=== PATIENT | male | born 1955 | race Caucasian/White ===

== ENCOUNTER 2020-11-11 13:28 | Emergency (ER) | payer MEDICAID ==
[~2020-11-11] VITALS: Ht 172.7 cm; Wt 85.7 kg
[~2020-11-11 13:28] MED LIST: AMBIEN 10 MG TA10 MG PO; CATAPRES; CLONAZEPAM; CLONAZEPAM PO; HYDROXYZINE; INVEGA6 MG PO; SEROQUEL; TRAZODONE 150150 MG PO
[2020-11-11 13:56] LABS: ABSOLUTE EOSINOPHILS 0.1 thou/uL (0.0-0.7); ABSOLUTE LYMPHOCYTES 1.2 thou/uL (0.8-5.3); ABSOLUTE MONOCYTES 0.6 thou/uL (0.0-1.2); ABSOLUTE NEUTROPHILS 6.6 thou/uL (1.6-8.1); BASOPHILS 0.5 %; EOSINOPHILS 1.4 %; HEMATOCRIT 40.8 % (42.0-52.0); HEMOGLOBIN 13.5 gm/dL (14.0-18.0); LYMPHOCYTES 13.9 %; MCH 30.7 pg (26.0-34.0); MCHC 33.2 g/dL (28.0-37.0); MCV 92.7 fL (80.0-100.0); MONOCYTES 7.5 %; MPV 8.9 fl. (7.2-11.1); NUCLEATED RBCS 0 /100WBC; PLATELET COUNT* 164 thou/uL (150-400); POLYS 76.7 %; WBC 8.6 thou/uL (4.0-11.0)
[2020-11-11 14:08] LABS: CALCIUM 8.2 mg/dL (8.5-10.1); CREATININE 0.7 mg/dL (0.6-1.3); POTASSIUM 3.8 mmol/L (3.5-5.1)
[2020-11-11 14:10] LABS: APTT 28.5 Seconds (25.0-31.3); PROTIME 10.6 Seconds (9.20-11.50)
[2020-11-11 14:22] LABS: ALBUMIN 3.1 g/dL (3.4-5.0); CK-MB MASS 1.4 ng/mL (<0.5-3.6); MAGNESIUM 2.1 mg/dL (1.8-2.4); TOTAL BILIRUBIN 0.6 mg/dL (<0.1-1.0); TOTAL PROTEIN 6.1 g/dL (6.4-8.2)
[2020-11-11] MEDS ORDERED: VENTOLIN HFA 1818 GM INH (15:10)
[2020-11-11] MEDS ORDERED: PREDNISONE 20 M20 M1 PO (15:10)
[2020-11-11] MEDS ORDERED: ZPAK PO (15:10)
[2020-11-11] MEDS ORDERED: LASIX 40 MG TAB40 MG PO (15:10)
[2020-11-11 15:35] VITALS: BP 142/72
--- NOTE | 2020-11-12 10:07 | EKG ---
[place] [address] ELECTROCARDIOGRAM REPORT Name: ALICE ALEX Room: [facility]#: [id number] Admission: 11/11/20 Attend Phys: Discharge: 11/11/20 Date of : 59 Date of Service: 11/11/20 1331 Report #: [id number] THIS REPORT FOR: //name// [facility] ED Test Date: 2020-11-11 Test Time: 13:31:42 Pat Name: ALICE ALEX Department: Room: Gender: License Registration Examiner: KIMBERLY : 1955 Requested By: Ej Vizcarra Order Number: [id number] MD: Trevor Jackman Measurements Intervals [place] Rate: 91 P: 63 SC: 143 QRS: 44 QRSD: 97 T: 82 QT: 338 QTc: 416 Interpretive Statements Sinus rhythm Ventricular premature complex Left atrial enlargement LVH with secondary repolarization abnormality Anterior Q waves, possibly due to LVH Compared to ECG 11/29/2009 21:44:42 Ventricular premature complex(es) now present Atrial abnormality now present Left ventricular hypertrophy now present Early repolarization now present Q waves now present ST (T wave) deviation no longer present Electronically Signed On 11-12-2020 10:06:46 CDT by Trevor Jackman [email or web address] <ELECTRONICALLY SIGNED> By: Trevor Jackman MD, [facility] 11/12/20 1006 30 133 Trevor Jackman MD, [facility] /EPI
== END 2020-11-11 15:35 | disposition home or self-care (01) ==
LOC: M.ERS 13:28
PROVIDERS: Family Medicine
DX: J44.1 Chronic obstructive pulmonary disease with (acute) exacerbation (principal); I10 Essential (primary) hypertension; F31.9 Bipolar disorder, unspecified; Z20.822 Contact with and (suspected) exposure to COVID-19; Z86.73 Personal history of transient ischemic attack (TIA), and cerebral infarction without residual deficits; Z79.899 Other long term (current) drug therapy

== ENCOUNTER 2020-11-30 10:12 | Inpatient (IN) | payer MEDICAID ==
[~2020-11-30] VITALS: Ht 172.7 cm; Wt 86.0 kg
--- NOTE | ~2020-11-30 | PROC ---
[address] [address] PROCEDURE REPORT Name: JOSHUA ALEXH Room: [address] IN M.R.#: [id number] Admission: 11/30/20 Attend Phys: Thang Robert MD Discharge: 12/02/20 Date of : 59 Report #: [id number] THIS REPORT FOR: cc: FAM - No family physician/PCP FAM - No family physician/PCP [facility],Medical Records Staff ~ For GI report, please see the Provation report in Perceptive 7 content. By: [id number] Records Staff [facility] /JULIO
[~2020-11-30 10:12] MED LIST changes: +LASIX 40 MG TAB40 MG PO; +PREDNISONE 20 M20 M1 PO; +VENTOLIN HFA 1818 GM INH; +ZPAK PO
[2020-11-30 10:18] VITALS: BP 104/71
[2020-11-30 10:32] LABS: ABSOLUTE BASOPHILS 0.1 thou/uL (0.0-0.2); ABSOLUTE LYMPHOCYTES 2.2 thou/uL (0.8-5.3); ABSOLUTE MONOCYTES 0.6 thou/uL (0.0-1.2); ABSOLUTE NEUTROPHILS 11.3 thou/uL (1.6-8.1); BASOPHILS 0.6 %; EOSINOPHILS 0.1 %; HEMATOCRIT 27.3 % (42.0-52.0); HEMOGLOBIN 8.9 gm/dL (14.0-18.0); LYMPHOCYTES 15.2 %; MCH 30.4 pg (26.0-34.0); MCHC 32.5 g/dL (28.0-37.0); MCV 93.4 fL (80.0-100.0); MONOCYTES 4.3 %; MPV 8.8 fl. (7.2-11.1); NUCLEATED RBCS 0 /100WBC; PLATELET COUNT* 267 thou/uL (150-400); POLYS 79.8 %; RBC 2.92 mil/uL (4.50-6.00); RDW-CV 15.1 % (10.5-14.5); WBC 14.2 thou/uL (4.0-11.0)
[2020-11-30 10:39] LABS: CALCIUM 8.2 mg/dL (8.5-10.1); CREATININE 1.4 mg/dL (0.6-1.3); POTASSIUM 4.2 mmol/L (3.5-5.1)
[2020-11-30 10:44] LABS: ALBUMIN 2.8 g/dL (3.4-5.0); TOTAL BILIRUBIN 0.3 mg/dL (<0.1-1.0)
[2020-11-30 10:46] LABS: URINE BILIRUBIN NEGATIVE (Negative); URINE BLOOD NEGATIVE (Negative); URINE CLARITY CLEAR; URINE COLOR YELLOW; URINE GLUCOSE-RANDOM NEGATIVE (Negative); URINE KETONES NEGATIVE (Negative); URINE LEUKOCYTES NEGATIVE (Negative); URINE NITRITE NEGATIVE (Negative); URINE PROTEIN NEGATIVE (Negative); URINE UROBILINOGEN 0.2 E.U./dl (0.2-1.0)
[2020-11-30 10:53] LABS: AMP/METHAMP POSITIVE (Negative); BARBITURATES Negative (Negative); BENZODIAZEPINES Negative (Negative); COCAINE Negative (Negative); METHADONE Negative (Negative); OPIATES Negative (Negative); PCP Negative (Negative); THC POSITIVE (Negative)
[2020-11-30 12:57] LABS: PROTIME 10.9 Seconds (9.20-11.50)
[2020-11-30 14:06] LABS: CALCIUM 8.2 mg/dL (8.5-10.1); CREATININE 1.6 mg/dL (0.6-1.3); POTASSIUM 4.1 mmol/L (3.5-5.1)
[2020-11-30 14:09] LABS: PHOSPHORUS* 2.8 mg/dL (2.5-4.9)
[2020-11-30 14:56] VITALS: BP 136/82
[2020-11-30 15:00] VITALS: BP 120/77
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
[2020-11-30 19:45] VITALS: BP 110/68
[2020-12-01 00:02] VITALS: BP 121/72
[2020-12-01 02:05] LABS: GLYCOHEMOGLOBIN (HGB A1C) 5.6 % (4.8-5.6)
--- NOTE | 2020-12-01 02:44 | NUR ---
ASSUMED CARE OF PT AT 1900. PT IS ALERT AND ORIENTED. VSS. PERRLA. PT IS SLEEPING. CIWA IS 6. PT GIVEN ATIVAN FOR ANXIETY. PT IS IN SINUS RYTHM ON THE TELEMETRY. PT IS RESTING COMFORTABLY IN BED. RESPIRATIONS ARE EVEN AND NONLABORED. WILL CONTINUE TO MONITOR PT.
[2020-12-01 03:47] VITALS: BP 118/69
[2020-12-01 04:45] LABS: CALCIUM 8.6 mg/dL (8.5-10.1); CREATININE 1.7 mg/dL (0.6-1.3); POTASSIUM 4.2 mmol/L (3.5-5.1)
[2020-12-01 04:50] LABS: ABSOLUTE BASOPHILS 0.1 thou/uL (0.0-0.2); ABSOLUTE EOSINOPHILS 0.1 thou/uL (0.0-0.7); ABSOLUTE LYMPHOCYTES 2.1 thou/uL (0.8-5.3); ABSOLUTE MONOCYTES 0.6 thou/uL (0.0-1.2); ABSOLUTE NEUTROPHILS 7.8 thou/uL (1.6-8.1); BASOPHILS 0.7 %; EOSINOPHILS 0.7 %; HEMATOCRIT 21.9 % (42.0-52.0); HEMOGLOBIN 7.3 gm/dL (14.0-18.0); LYMPHOCYTES 19.5 %; MCH 31.2 pg (26.0-34.0); MCHC 33.3 g/dL (28.0-37.0); MCV 93.7 fL (80.0-100.0); MONOCYTES 5.4 %; NUCLEATED RBCS 0 /100WBC; PLATELET COUNT* 195 thou/uL (150-400); POLYS 73.7 %; RBC 2.34 mil/uL (4.50-6.00); RDW-CV 15.2 % (10.5-14.5); WBC 10.6 thou/uL (4.0-11.0)
[2020-12-01 08:25] VITALS: BP 128/52
--- NOTE | 2020-12-01 10:28 | NUR ---
CM SPOKE TO THE PT TO DISCUSS CM ASSESSMENT. PT A&O, AND INDEPENDENT WITH ADL'S. PT RESIDES AT HOME ALONE. PT USES 0 DME. PT HAS 0 HX OF HH OR SNF. PT DOES NOT HAVE A PCP. CM OFFERED TO ASSIST PT WITH FINDING A PCP OR PROVIDING RESOURCES FOR COMMUNITY CLINIC (LIVE WILL CLINICS) FOR F/U. PT DECLINED. CM ALSO OFFERED PT RESOURCES FOR ETOH TREATMENT. PT DECLINED. CM WILL REMAIN AVAILABLE TO ASSIST AND FOLLOW NEEDED.
--- NOTE | 2020-12-01 11:17 | EKG ---
[place] [address] ELECTROCARDIOGRAM REPORT Name: ALICE ALEX Room: [place] [address] ADM IN M.R.#: [id number] Admission: 11/30/20 Attend Phys: Thang Robert, Discharge: Date of : 59 Date of Service: 11/30/20 1016 Report #: [id number] THIS REPORT FOR: //name// [facility] ED Test Date: 2020-11-30 Test Time: 10:16:46 Pat Name: ALICE ALEX Department: Room: [place] [address] Gender: M Male Impersonator: CAMACHO : 1955 Requested By: Lamont Medina Order Number: [id number] Cristopher MD: Marquise Garcia Measurements Intervals [place] Rate: 107 P: -54 TN: 135 QRS: 22 QRSD: 77 T: 117 QT: 351 QTc: 469 Interpretive Statements Sinus or ectopic atrial tachycardia Probable left atrial enlargement LVH with secondary repolarization abnormality Compared to ECG 11/11/2020 13:31:42 Sinus rhythm no longer present Ventricular premature complex(es) no longer present Q waves no longer present Electronically Signed On 12-01-2020 11:17:30 CDT by Marquise Garcia [email or web address] <ELECTRONICALLY SIGNED> By: Marquise Garcia MD, [facility] 12/01/20 1117 1016 1016 Marquise Garcia MD, [facility] /EPI
[2020-12-01 11:54] VITALS: BP 115/70
--- NOTE | 2020-12-01 12:51 | NUR ---
Nutrition: Pt admitted with GIB. H/o ETOHism, COPD, anxiety. Consult received for wt loss. Pt stated he usually weighs 190#. Current wt: 189#. He also stated he has lost 20#, but he could not tell me when or why. He kept falling asleep during conversation and his speech wasn't audible all the time. He has no teeth. He said he eats 3 meals/day. Labs: BG 137, alb 2.8, prealb 19.7. NPO status today. Pt likely has poor nutrition-quality of life R/T ETOHism. Unable to get full assessment of wt loss hx today d/t pt's lack of conversation. Inadequate oral intake R/T diet order AEB NPO status. Advance diet as appropriate. Ensure shakes available if desired. Mild risk for now. RD will follow up on wt hx, diet order, po intake 12/03/20.
[2020-12-01 16:03] VITALS: BP 144/72
[2020-12-01 20:00] VITALS: BP 106/61
--- NOTE | 2020-12-01 20:54 | NUR ---
Pt remained A&O x4 for entire shift. Vital signs stable. Pt seemingly restless and anxious. Pt upset that he could not eat or drink this morning and felt like it took a long time to get the EGD. Pt upset upon return from EGD stating he wanted to leave. Pt was given food and educated on why the doctor wanted him to stay. Pt calmed down and was agreeable to plan to stay. Meds given per MAR. Bed in low position, bed alarm on, call light within reach.
[2020-12-02 00:47] VITALS: BP 108/65
--- NOTE | 2020-12-02 01:53 | NUR ---
INITAL ASSESSMENT IV PUMP ALARMING HIGH PRESSUER FROM PT BENDING R AC WHERE IV IS INSERTED. PT CURSING AND SAYING IF YOU DON'T STOP THIS I'M GOING TO RIP THIS OUT. PT REASURED. ATIVAN 1 MG GIVEN. PT RESTING AFTER THAT. IV ALARMING BC PT BENDING ARM. NEW IV SITE STARTED IN R LOWER FA. TELEMETRY SR. ATIVAN GIVEN AT DC FOR ANXIETY. PT APPROX 0100 STATED I'M LEAVING. NOTIFIED, HOUSE SUPP NOTIFIED. PT'S FATHER CALLED FOR TRANSPORTATION. PT CURSING AT STAFF. SECURITY NOTIFIED. SECURITY TOOK PT TO CAR. NO BELONGINGS WITH PT EXCEPT FOR SOCKS. PT PLACED IN TWO GOWNS ONE FRONT ONE BACK AND YELLOW SOCKS OVER HOME SOCKS.
== END 2020-12-02 01:40 | disposition left against medical advice (07) | DRG 368 ==
LOC: M.ERS 10:12 → M.TBA-ER 12:35 → M.2W 15:09
PROVIDERS: Emergency Medicine; ADMIT Internal Medicine; ATTEND Internal Medicine
PROC: 0DB38ZX Excision of Lower Esophagus, Via Natural or Artificial Opening Endoscopic, Diagnostic (ICD-10-PCS; principal; 2020-12-01)
PROC: 0DB98ZX Excision of Duodenum, Via Natural or Artificial Opening Endoscopic, Diagnostic (ICD-10-PCS; principal; 2020-12-01)
DX: K21.01 Gastro-esophageal reflux disease with esophagitis, with bleeding (principal); N17.0 Acute kidney failure with tubular necrosis; J44.1 Chronic obstructive pulmonary disease with (acute) exacerbation; D62 Acute posthemorrhagic anemia; R65.10 Systemic inflammatory response syndrome (SIRS) of non-infectious origin without acute organ dysfunction; K90.0 Celiac disease; Z20.822 Contact with and (suspected) exposure to COVID-19; I10 Essential (primary) hypertension; F31.9 Bipolar disorder, unspecified; F17.210 Nicotine dependence, cigarettes, uncomplicated; F10.20 Alcohol dependence, uncomplicated; Y90.9 Presence of alcohol in blood, level not specified; F41.9 Anxiety disorder, unspecified; F12.10 Cannabis abuse, uncomplicated; K44.9 Diaphragmatic hernia without obstruction or gangrene; Z86.73 Personal history of transient ischemic attack (TIA), and cerebral infarction without residual deficits; Z79.899 Other long term (current) drug therapy

== ENCOUNTER 2020-12-17 09:05 | Emergency (ER) | payer MEDICAID ==
[~2020-12-17] VITALS: Ht 172.7 cm; Wt 86.2 kg
[2020-12-17] MEDS ORDERED: ATIVAN0.5 M1 PO (09:11)
[2020-12-17] MEDS ORDERED: DESYREL150 MG PO (09:11)
[2020-12-17 09:33] LABS: ABSOLUTE BASOPHILS 0.1 thou/uL (0.0-0.2); ABSOLUTE EOSINOPHILS 0.1 thou/uL (0.0-0.7); ABSOLUTE LYMPHOCYTES 1.1 thou/uL (0.8-5.3); ABSOLUTE MONOCYTES 0.7 thou/uL (0.0-1.2); ABSOLUTE NEUTROPHILS 9.3 thou/uL (1.6-8.1); BASOPHILS 0.9 %; EOSINOPHILS 0.8 %; HEMATOCRIT 25.2 % (42.0-52.0); HEMOGLOBIN 7.9 gm/dL (14.0-18.0); LYMPHOCYTES 9.4 %; MCH 27.7 pg (26.0-34.0); MCHC 31.2 g/dL (28.0-37.0); MCV 88.8 fL (80.0-100.0); MPV 7.7 fl. (7.2-11.1); NUCLEATED RBCS 0 /100WBC; PLATELET COUNT* 374 thou/uL (150-400); POLYS 82.9 %; RBC 2.84 mil/uL (4.50-6.00); RDW-CV 19.3 % (10.5-14.5); WBC 11.3 thou/uL (4.0-11.0)
[2020-12-17 09:46] LABS: PROTIME 10.9 Seconds (9.20-11.50)
[2020-12-17 09:54] LABS: ALBUMIN 2.8 g/dL (3.4-5.0); MAGNESIUM 2.2 mg/dL (1.8-2.4); TOTAL BILIRUBIN 0.3 mg/dL (<0.1-1.0); TOTAL PROTEIN 6.6 g/dL (6.4-8.2)
[2020-12-17] MEDS ORDERED: PREDNISONE 20 M20 M1 PO (10:56)
[2020-12-17] MEDS ORDERED: ZPAK PO (10:56)
[2020-12-17 11:05] VITALS: BP 146/98
--- NOTE | 2020-12-17 12:48 | EKG ---
[place] [address] ELECTROCARDIOGRAM REPORT Name: ALICE ALEX Room: [facility]#: [id number] Admission: 12/17/20 Attend Phys: Discharge: 12/17/20 Date of : 59 Date of Service: 12/17/20 0909 Report #: [id number] THIS REPORT FOR: //name// [facility] ED Test Date: 2020-12-17 Test Time: 09:09:08 Pat Name: ALICE ALEX Department: Room: Gender: Field Marketer: TREVON : 1955 Requested By: Ej Vizcarra Order Number: [id number] MD: Marquise Garcia Measurements Intervals [place] Rate: 108 P: 58 [place]: 130 QRS: 26 QRSD: 101 T: QT: 312 QTc: 418 Interpretive Statements Sinus tachycardia Atrial premature complex Probable left atrial enlargement RSR' in V1 or V2, probably normal variant LVH with secondary repolarization abnormality Compared to ECG 11/30/2020 10:16:46 Atrial premature complex(es) now present Electronically Signed On 12-17-2020 12:48:15 CDT by Marquise Garcia [email or web address] <ELECTRONICALLY SIGNED> By: Marquise Garcia MD, FAC 12/17/20 1248 Marquise Garcia MD, [facility] /EPI
== END 2020-12-17 11:07 | disposition home or self-care (01) ==
LOC: M.ERS 09:05
PROVIDERS: Family Medicine
DX: J44.1 Chronic obstructive pulmonary disease with (acute) exacerbation (principal); Z20.822 Contact with and (suspected) exposure to COVID-19; F15.90 Other stimulant use, unspecified, uncomplicated; I10 Essential (primary) hypertension; F12.90 Cannabis use, unspecified, uncomplicated; Z79.899 Other long term (current) drug therapy; Z86.73 Personal history of transient ischemic attack (TIA), and cerebral infarction without residual deficits

== ENCOUNTER 2021-01-03 20:24 | Inpatient (IN) | payer MEDICAID ==
[~2021-01-03] VITALS: Ht 177.8 cm; Wt 95.3 kg
[~2021-01-03 20:24] MED LIST changes: +ATIVAN0.5 M1 PO; +DESYREL150 MG PO
[2021-01-03 20:25] VITALS: BP 159/101
[2021-01-03 20:55] LABS: HEMATOCRIT 26.6 % (42.0-52.0); HEMOGLOBIN 7.9 gm/dL (14.0-18.0); MCH 24.2 pg (26.0-34.0); MCHC 29.7 g/dL (28.0-37.0); MCV 81.2 fL (80.0-100.0); MPV 7.7 fl. (7.2-11.1); NUCLEATED RBCS 0 /100WBC; PLATELET COUNT* 419 thou/uL (150-400); RBC 3.28 mil/uL (4.50-6.00); RDW-CV 25.1 % (10.5-14.5); WBC 21.1 thou/uL (4.0-11.0)
[2021-01-03 21:05] LABS: CREATININE 1.1 mg/dL (0.6-1.3)
[2021-01-03 21:06] LABS: PROTIME 10.6 Seconds (9.20-11.50)
[2021-01-03 21:17] LABS: ALBUMIN 2.9 g/dL (3.4-5.0); TOTAL BILIRUBIN 0.3 mg/dL (<0.1-1.0); TOTAL PROTEIN 6.6 g/dL (6.4-8.2)
[2021-01-03 21:18] LABS: ABSOLUTE LYMPHOCYTES 0.8 thou/uL (0.8-5.3); ABSOLUTE MONOCYTES 0.6 thou/uL (0.0-1.2); ABSOLUTE NEUTROPHILS 19.6 thou/uL (1.6-8.1); ANISOCYTOSIS 1+; HYPOCHROMASIA 2+; PLATELET ESTIMATE INCREASED; POLYCHROMASIA 1+
[2021-01-03 21:24] LABS: BE 4.7 mmol/L (-2 to +3); PO2 101.2 mmHg (75.0-100.0); pH 7.378 (7.340-7.450)
[2021-01-03 21:28] LABS: PCO2 53.2 mmHg (35.0-45.0)
[2021-01-03 23:07] VITALS: BP 144/88
[2021-01-03 23:20] VITALS: BP 160/85
[2021-01-04] VITALS (7 sets, daily range): BP systolic 98–142; BP diastolic 50–95
[2021-01-05 03:31] VITALS: BP 133/89
--- NOTE | 2021-01-05 10:21 | EKG ---
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: radha : 1955 Requested By: Kendra Armenta Order Number: [id number] MD: Marquise Garcia Measurements Intervals [place] Rate: 135 P: 61 [place]: 117 QRS: 18 QRSD: 96 T: 164 QT: 280 QTc: 420 Interpretive Statements Sinus tachycardia Multiple premature complexes, supraven Probable left atrial enlargement RSR' in V1 or V2, probably normal variant LVH with secondary repolarization abnormality Baseline wander in lead(s) III Compared to ECG 12/17/2020 09:09:08 no change Electronically Signed On 01-05-2021 10:21:38 CDT by Marquise Garcia [email or web address] <ELECTRONICALLY SIGNED> By: Marquise Garcia MD, [facility] 01/05/21 1021 27 27 Marquise Garcia MD, [facility] /EPI
[2021-01-05 11:19] LABS: ABSOLUTE LYMPHOCYTES 0.2 thou/uL (0.8-5.3); ABSOLUTE MONOCYTES 0.1 thou/uL (0.0-1.2); ABSOLUTE NEUTROPHILS 8.4 thou/uL (1.6-8.1); HEMATOCRIT 27.4 % (42.0-52.0); HEMOGLOBIN 8.5 gm/dL (14.0-18.0); LYMPHOCYTES 1.8 %; MCH 24.7 pg (26.0-34.0); MCHC 31.1 g/dL (28.0-37.0); MCV 79.5 fL (80.0-100.0); MONOCYTES 1.4 %; MPV 7.7 fl. (7.2-11.1); NUCLEATED RBCS 0 /100WBC; PLATELET COUNT* 376 thou/uL (150-400); POLYS 96.8 %; RBC 3.44 mil/uL (4.50-6.00); RDW-CV 25.4 % (10.5-14.5); WBC 8.7 thou/uL (4.0-11.0)
[2021-01-05 11:40] LABS: CALCIUM 8.9 mg/dL (8.5-10.1); CREATININE 1.2 mg/dL (0.6-1.3); POTASSIUM 3.8 mmol/L (3.5-5.1)
[2021-01-05 11:44] LABS: % SATURATION 2 % (20-39); IRON 11 ug/dL (50-175)
[2021-01-05 12:44] VITALS: BP 116/76
--- NOTE | 2021-01-05 14:18 | 2DMMODE ---
[place] [address] 2 D/M-MODE ECHOCARDIOGRAM Name: ALICE ALEX Belinda Room: [address] IN [facility]#: [id number] Admission: 01/03/21 Attend Phys: Thang Robert, Discharge: Date of : 59 Date of Service: 01/05/21 1418 Report #: [id number] THIS REPORT FOR: cc: FAM - No family physician/PCP FAM - No family physician/PCP Marquise Garcia MD [facility] ~ APPROVED REPORT Study performed: 01/05/2021 11:37:47 EXAM: Comprehensive 2D, Doppler, and color-flow Echocardiogram Patient Location: In-Patient Room #: 203 Status: routine BSA: 2.13 HR: 87 bpm BP: 133/89 mmHg Rhythm: NSR Other Information Study Quality: Good Indications Congestive Heart Failure COPD 2D Dimensions IVSd: 12.35 (7-11mm) LVOT Diam: 22.81 (18-24mm) LVDd: 73.92 mm PWd: 11.82 (7-11mm) Ascending Ao: 37.34 (22-36mm) LVDs: 62.04 (25-40mm) Aortic Root: 37.43 mm Volumes Left Atrial Volume (Systole) LA ESV Index: 41.70 mL/m2 Aortic Valve AoV Peak Jalen.: 1.39 m/s AO Peak Gr.: 7.73 mmHg LVOT Max P.59 mmHg AO Mean Gr.: 4.62 mmHg LVOT Mean P.98 mmHg LVOT Max V: 1.28 m/s AO V2 VTI: 19.78 cm LVOT Mean V: 0.78 m/s DOMINIQUE (VTI): 4.00 cm2 LVOT V1 VTI: 19.39 [place] [address] 2 D/M-MODE ECHOCARDIOGRAM Name: ALICE ALEX Room: [address] IN [facility]#: [id number] Admission: 01/03/21 Attend Phys: Thang Robert, Discharge: Date of : 59 Date of Service: 01/05/21 1418 Report #: [id number] Mitral Valve E/A Ratio: 1.35 MV Decel. Time: 147.11 ms MV E Max Jalen.: 0.97 m/s MV PHT: 42.66 ms MVA (PHT): 5.16 cm2 Pulmonary Valve PV Peak Jalen.: 0.86 m/s PV Peak Gr.: 2.93 mmHg Tricuspid Valve RAP Estimate: 5.00 mmHg TR Peak Gr.: 32.53 mmHg RVSP: 37.00 mmHg PA Pressure: 37.00 mmHg Left Ventricle Left ventricle is mildly dilated. There is global hypokinesis of the left ventricle. There is normal left ventricular wall thickness. Left ventricular systolic function is decreased. LVEF is 25-30%. The left ventricular diastolic function is normal. Right Ventricle The right ventricle is normal size. The right ventricular systolic function is normal. Atria Left atrium is mild to moderately dilated. The right atrium size is normal. Aortic Valve Mild aortic valve sclerosis. No aortic regurgitation is present. There is no aortic valvular stenosis. Mitral Valve The mitral valve is normal in structure. Moderately mitral regurgitation. No evidence of mitral valve stenosis. Tricuspid Valve The tricuspid valve is normal in structure. Mild tricuspid regurgitation. estimatd pa pressure 40 mm Hg Pulmonic Valve The pulmonary valve is normal in structure. There is no pulmonic [place] [address] 2 D/M-MODE ECHOCARDIOGRAM Name: ABIALICE L Room: [address]#: [id number] Admission: 01/03/21 Attend Phys: Thang Robert, Discharge: Date of : 59 Date of Service: 01/05/21 1418 Report #: [id number] Great Vessels The aortic root is normal in size. IVC is normal in size and collapses >50% with inspiration. Pericardium There is no pericardial effusion. <Conclusion> Left ventricle is mildly dilated. LVEF is 25-30%. Left atrium is mild to moderately dilated. Moderately mitral regurgitation. Mild tricuspid regurgitation. estimatd pa pressure 40 mm Hg <ELECTRONICALLY SIGNED> By: Marquise Garcia MD, [facility]ACC 01/05/21 1418 17 17 Marquise Garcia MD, FAC /INF
--- NOTE | 2021-01-05 14:56 | CON ---
[address] [address] CONSULTATION Name: ALICE ALEX Room: [address] IN M.R.#: [id number] Admission: 01/03/21 Attend Phys: Thang Robert MD Discharge: Date of : 59 Report #: [id number] THIS REPORT FOR: cc: FAM - No family physician/PCP FAM - No family physician/PCP Marquise Garcia MD [facility] ~ DOC #: [id number] Marquise Garcia MD [facility] DATE OF CONSULTATION: 01/05/2021 CARDIOLOGY CONSULTATION HISTORY OF PRESENT ILLNESS: The patient is a 65-year-old white male who I was asked to see in the hospital today after he complained of being short of breath. The patient was actually admitted here to [facility] in 11/2020 with acute GI bleed and anemia. He has a history of alcohol abuse. He actually left AMA. The patient states that he has a history of COPD and recently he has been more short of breath. He has been coughing and has lower extremity edema. He has been getting worse in the past 3 weeks. He also notes right-sided chest pain, it is nonexertional, there is no radiation. It is not related to food. He denied trauma to his chest. He notes occasional episodes of heart race. He has felt lightheaded. He has had no syncope. He came to the emergency room 2 days ago by ambulance and was admitted. Cardiology consultation was requested. PAST MEDICAL HISTORY: He has had no surgical procedures. He does have a history of hypertension. He receives his medications from mental health clinic, he has manic depressive illness, he has been hospitalized for his bipolar illness in the past. He has no history of diabetes or hyperlipidemia. CURRENT MEDICATIONS: Consist of albuterol nebulized treatment, prednisone, Z-León, Ativan, Desyrel, Seroquel, hydroxyzine, clonidine. ALLERGIES: He has no known drug allergies. FAMILY HISTORY: Negative for heart disease. SOCIAL HISTORY: He is , lives in [place], [place] by himself. 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 He is on disability due to his manic depressive illness. He smokes 2 packs cigarettes a day. He has a history of alcohol abuse, went to , now drinks 1 pint of whisky just once a week. REVIEW OF SYSTEMS: He has had a seizure in the past. He has passed out from his drinking in the past. No history of stroke. He has COPD and uses inhaler. No liver disease. No kidney disease. He has had tarry stools in the past. No GI workup. He has been told he is anemia. No chronic skin condition, [place] [address] CONSULTATION Name: ALICE ALEX Room: [address]#: [id number] Admission: 01/03/21 Attend Phys: Thang Robert MD Discharge: Date of : 59 Report #: [id number] cancer. He has manic depressive illness. PHYSICAL EXAMINATION: GENERAL: Revealed a middle-aged male who appeared in no acute distress. VITAL SIGNS: He had a blood pressure of 130/70, pulse is 80, he is afebrile. HEENT: He is anicteric. Conjunctivae pink. Mucous membranes moist. NECK: Veins do not appear distended. No carotid bruits. CHEST: Revealed expiratory wheezes. CARDIAC: Regular rate and rhythm. No murmur. ABDOMEN: Soft. EXTREMITIES: Had trace edema up to the mid tibial area. The dorsalis pedis pulse could not be palpated. SKIN: Cool and dry. NEUROLOGIC: Nonfocal. His ECG done in the emergency room 2 days ago showed a sinus tachycardia with left ventricular hypertrophy and repolarization changes. His workup, the patient had a portable chest x-ray in the emergency room 2 days ago that showed cardiomegaly, hyperinflated lung elizabeth. LABORATORY DATA: Sodium 144, potassium 3.0, creatinine 1.1. His troponins were all less than 0.06. BNP 8,118. His white blood cell count 21,000, hemoglobin 7.9, it was 7.3 in November. His COVID antigen test was negative. Urinalysis negative for protein. IMPRESSION AND RECOMMENDATIONS: 1. Chest pain. Atypical for angina. I would not recommend stress testing at this time. 2. Chronic obstructive pulmonary disease. 3. Tobacco abuse. The patient requests a nicotine patch. 4. History of alcohol abuse. The patient went to AA in the past. 5. Hypertension. The patient is on clonidine. 6. Manic depressive illness. The patient followed in mental health clinic. 7. Anemia. 8. History of gastrointestinal bleeding. Marquise Garcia MD [facility]/RAMON/[place] [address] CONSULTATION Name: ALICE ALEX Room: [address] IN M.R.#: [id number] Admission: 01/03/21 Attend Phys: Thang Robert MD Discharge: Date of : 59 Report #: [id number] <ELECTRONICALLY SIGNED> By: Marquise Garcia MD, [facility] 01/05/21 1456 0809 [id number] Garcia MD, [facility] /nt
[2021-01-05 15:38] VITALS: BP 133/89
[2021-01-05 20:00] VITALS: BP 131/98
[2021-01-05 23:29] VITALS: BP 112/76
[2021-01-06 02:07] LABS: GLYCOHEMOGLOBIN (HGB A1C) 5.7 % (4.8-5.6)
[2021-01-06 03:35] VITALS: BP 106/65
[2021-01-06 04:41] LABS: HEMATOCRIT 23.2 % (42.0-52.0); HEMOGLOBIN 7.2 gm/dL (14.0-18.0); MCH 24.5 pg (26.0-34.0); MCV 79.2 fL (80.0-100.0); RBC 2.94 mil/uL (4.50-6.00); RDW-CV 25.3 % (10.5-14.5); WBC 7.2 thou/uL (4.0-11.0)
[2021-01-06 05:13] LABS: CALCIUM 8.4 mg/dL (8.5-10.1); CREATININE 1.1 mg/dL (0.6-1.3)
[2021-01-06 07:58] VITALS: BP 106/65
== END 2021-01-06 12:25 | disposition home or self-care (01) | DRG 189 ==
LOC: M.ERS 20:24 → M.TBA-ER 21:35 → M.2W 23:10
PROVIDERS: Emergency Medicine; Internal Medicine; Internal Medicine Cardiovascular Disease; ADMIT Internal Medicine; ATTEND Internal Medicine
PROC: 5A09357 Assistance with Respiratory Ventilation, Less than 24 Consecutive Hours, Continuous Positive Airway Pressure (ICD-10-PCS; principal; 2021-01-03)
PROC: 5A09357 Assistance with Respiratory Ventilation, Less than 24 Consecutive Hours, Continuous Positive Airway Pressure (ICD-10-PCS; 2021-01-04)
PROC: 5A09357 Assistance with Respiratory Ventilation, Less than 24 Consecutive Hours, Continuous Positive Airway Pressure (ICD-10-PCS; 2021-01-05)
DX: J96.01 Acute respiratory failure with hypoxia (principal); J44.1 Chronic obstructive pulmonary disease with (acute) exacerbation; F10.139 Alcohol abuse with withdrawal, unspecified; J96.02 Acute respiratory failure with hypercapnia; F31.9 Bipolar disorder, unspecified; I50.9 Heart failure, unspecified; D64.9 Anemia, unspecified; E11.9 Type 2 diabetes mellitus without complications; I11.0 Hypertensive heart disease with heart failure; Z20.822 Contact with and (suspected) exposure to COVID-19; Z86.73 Personal history of transient ischemic attack (TIA), and cerebral infarction without residual deficits; Z71.6 Tobacco abuse counseling

== ENCOUNTER 2021-02-06 10:13 | Emergency (ER) | payer MEDICAID ==
[~2021-02-06] VITALS: Ht 172.7 cm; Wt 81.7 kg
[2021-02-06 11:12] LABS: ABSOLUTE BASOPHILS 0.1 thou/uL (0.0-0.2); ABSOLUTE EOSINOPHILS 0.2 thou/uL (0.0-0.7); ABSOLUTE LYMPHOCYTES 1.5 thou/uL (0.8-5.3); ABSOLUTE MONOCYTES 0.8 thou/uL (0.0-1.2); ABSOLUTE NEUTROPHILS 4.9 thou/uL (1.6-8.1); BASOPHILS 1.3 %; EOSINOPHILS 2.3 %; HEMATOCRIT 24.4 % (42.0-52.0); HEMOGLOBIN 7.7 gm/dL (14.0-18.0); LYMPHOCYTES 19.6 %; MCH 22.5 pg (26.0-34.0); MCHC 31.7 g/dL (28.0-37.0); MONOCYTES 10.3 %; MPV 7.1 fl. (7.2-11.1); NUCLEATED RBCS 0 /100WBC; PLATELET COUNT* 466 thou/uL (150-400); POLYS 66.5 %; RBC 3.43 mil/uL (4.50-6.00); RDW-CV 24.7 % (10.5-14.5); WBC 7.4 thou/uL (4.0-11.0)
[2021-02-06 11:22] LABS: CALCIUM 8.4 mg/dL (8.5-10.1); CREATININE 0.9 mg/dL (0.6-1.3)
[2021-02-06 11:40] LABS: ALBUMIN 2.5 g/dL (3.4-5.0); TOTAL BILIRUBIN 0.2 mg/dL (<0.1-1.0); TOTAL PROTEIN 6.4 g/dL (6.4-8.2)
[2021-02-06 11:41] LABS: POTASSIUM 2.9 mmol/L (3.5-5.1)
[2021-02-06 11:50] LABS: ANISOCYTOSIS 2+; HYPOCHROMASIA 1+; MICROCYTES 2+
[2021-02-06] MEDS ORDERED: OMEPRAZOLE 20 M20 M1 PO (15:05)
[2021-02-06] MEDS ORDERED: IRON 100 PLUS1 EACH PO (15:05)
[2021-02-06] MEDS ORDERED: POTASSIUM20 PO (15:08)
[2021-02-06 15:30] VITALS: BP 108/79
--- NOTE | 2021-02-06 16:05 | EKG ---
[place] [address] ELECTROCARDIOGRAM REPORT Name: ALICE ALEX Room: [facility]#: [id number] Admission: 02/06/21 Attend Phys: Discharge: 02/06/21 Date of : 59 Date of Service: 02/06/21 [facility] Report #: [id number] THIS REPORT FOR: //name// [facility] ED Test Date: 2021-02-06 Test Time: 10:37:06 Pat Name: ALICE ALEX Department: Room: Gender: Civil Clerk: : 1955 Requested By: Constantino Peck Order Number: [id number] MD: Marquise Garcia Measurements Intervals [place] Rate: 100 P: -34 [place]: 135 QRS: 17 QRSD: 94 T: 53 QT: 362 QTc: 467 Interpretive Statements Sinus tachycardia supraventricular premature complex Probable left atrial enlargement Left ventricular hypertrophy Anterior Q waves, possibly due to LVH Compared to ECG 01/03/2021 20:28:10 rate has slowed Electronically Signed On 02-06-2021 16:05:18 CDT by Marquise Garcia [email or web address] <ELECTRONICALLY SIGNED> By: Marquise Garcia MD, [facility] 02/06/21 1605 1037 1037 Marquise Garcia MD, [facility] /EPI
== END 2021-02-06 15:30 | disposition home or self-care (01) ==
LOC: M.ERS 10:13
PROVIDERS: Physician Assistant
DX: D64.9 Anemia, unspecified (principal); Z20.822 Contact with and (suspected) exposure to COVID-19; E87.6 Hypokalemia; R91.8 Other nonspecific abnormal finding of lung field; I11.0 Hypertensive heart disease with heart failure; I50.9 Heart failure, unspecified; J44.9 Chronic obstructive pulmonary disease, unspecified; F17.210 Nicotine dependence, cigarettes, uncomplicated; Z86.73 Personal history of transient ischemic attack (TIA), and cerebral infarction without residual deficits

== ENCOUNTER 2021-03-29 09:53 | Inpatient (IN) | payer MEDICAID ==
[~2021-03-29] VITALS: Ht 152.4 cm; Wt 81.6 kg
[~2021-03-29 09:53] MED LIST changes: -HYDROXYZINE; +HYDROXYZINE HCL25 M2 PO; +IRON 100 PLUS1 EACH PO; +OMEPRAZOLE 20 M20 M1 PO; +POTASSIUM20 PO; -SEROQUEL; +SEROQUEL200 MG PO
[2021-03-29 09:57] VITALS: BP 165/114
[2021-03-29 10:21] LABS: HEMATOCRIT 36.2 % (42.0-52.0); HEMOGLOBIN 10.1 gm/dL (14.0-18.0); MCH 19.8 pg (26.0-34.0); MCV 70.8 fL (80.0-100.0); MPV 8.2 fl. (7.2-11.1); NUCLEATED RBCS 0 /100WBC; PLATELET COUNT* 470 thou/uL (150-400); RBC 5.12 mil/uL (4.50-6.00); RDW-CV 21.7 % (10.5-14.5); WBC 12.2 thou/uL (4.0-11.0)
[2021-03-29 10:34] LABS: CALCIUM 8.8 mg/dL (8.5-10.1); CREATININE 1.1 mg/dL (0.6-1.3); POTASSIUM 4.5 mmol/L (3.5-5.1)
[2021-03-29 10:41] LABS: ALBUMIN 3.8 g/dL (3.4-5.0); TOTAL BILIRUBIN 0.1 mg/dL (<0.1-1.0); TOTAL PROTEIN 7.6 g/dL (6.4-8.2)
--- NOTE | 2021-03-29 10:42 | NUR ---
JEEVAN ([facility]) [phone]
[2021-03-29 11:01] LABS: ABSOLUTE BASOPHILS 0.1 thou/uL (0.0-0.2); ABSOLUTE LYMPHOCYTES 1.1 thou/uL (0.8-5.3); ABSOLUTE MONOCYTES 0.1 thou/uL (0.0-1.2); ABSOLUTE NEUTROPHILS 10.9 thou/uL (1.6-8.1); PLATELET ESTIMATE INCREASED
[2021-03-29 11:02] LABS: ANISOCYTOSIS 2+; HYPOCHROMASIA 2+; MICROCYTES 2+; OVALOCYTES 1+; POIKILOCYTOSIS 1+; POLYCHROMASIA Occasional
[2021-03-29 14:40] VITALS: BP 127/91
[2021-03-29 18:29] VITALS: BP 139/89
[2021-03-29 22:30] VITALS: BP 147/97
[2021-03-30] VITALS (7 sets, daily range): BP systolic 111–142; BP diastolic 76–96
[2021-03-30 03:24] LABS: HEMATOCRIT 30.8 % (42.0-52.0); HEMOGLOBIN 9.1 gm/dL (14.0-18.0); MCH 20.3 pg (26.0-34.0); MCHC 29.5 g/dL (28.0-37.0); MCV 68.7 fL (80.0-100.0); MPV 8.2 fl. (7.2-11.1); RBC 4.49 mil/uL (4.50-6.00); RDW-CV 21.3 % (10.5-14.5); WBC 8.9 thou/uL (4.0-11.0)
[2021-03-30 03:45] LABS: POTASSIUM 4.5 mmol/L (3.5-5.1)
--- NOTE | 2021-03-30 10:02 | EKG ---
[place] [address] ELECTROCARDIOGRAM REPORT Name: ALEXANDRIAKARLALICE L Room: [place] [address] ADM IN ..#: [id number] Admission: 03/29/21 Attend Phys: Rylan Staton Discharge: Date of : 59 Date of Service: 03/29/21 1025 Report #: [id number] THIS REPORT FOR: //name// [facility] ED Test Date: 2021-03-29 Test Time: 10:25:45 Pat Name: ALICE ALEX Department: Room: [facility] Gender: M Classified Ad Taker: : 1955 Requested By: Ej Vizcarra Order Number: [id number] MD: Marquise Garcia Measurements Intervals [place] Rate: 135 P: 48 [place]: 141 QRS: 15 QRSD: 88 T: 145 QT: 278 QTc: 417 Interpretive Statements Sinus tachycardia Multiple premature complexes, supraven Probable left atrial enlargement Probable LVH with secondary repol abnrm Anterior Q waves, possibly due to LVH Compared to ECG 02/06/2021 10:37:06 No significant changes Electronically Signed On 03-30-2021 10:02:07 CDT by Marquise Garcia [email or web address] <ELECTRONICALLY SIGNED> By: Marquise Garcia MD, [facility] 03/30/21 1002 1025 1025 Marquise Garcia MD, [facility] /EPI
--- NOTE | 2021-03-30 12:47 | 2DMMODE ---
[place] [address] 2 D/M-MODE ECHOCARDIOGRAM Name: ALICE ALEX Belinda Room: [place] [address] ADM [place]#: [id number] Admission: 03/29/21 Attend Phys: Rylan Staton Discharge: Date of : 59 Date of Service: 03/30/21 1247 Report #: [id number] THIS REPORT FOR: cc: Miriam Parham Mischelle RNP Blick, David R. MD [facility] ~ APPROVED REPORT Study performed: 03/30/2021 11:13:50 EXAM: Comprehensive 2D, Doppler, and color-flow Echocardiogram Patient Location: In-Patient Room #: er Status: routine BSA: 1.95 HR: 99 bpm BP: 118/82 mmHg Rhythm: NSR Other Information Study Quality: Good Indications Congestive Heart Failure Dyspnea 2D Dimensions IVSd: 10.63 (7-11mm) LVOT Diam: 23.58 (18-24mm) LVDd: 70.68 mm PWd: 9.46 (7-11mm) Ascending Ao: 40.60 (22-36mm) LVDs: 63.39 (25-40mm) Aortic Root: 37.12 mm Volumes Left Atrial Volume (Systole) LA ESV Index: 55.70 mL/m2 Aortic Valve AoV Peak Jalen.: 1.07 m/s AO Peak Gr.: 4.56 mmHg LVOT Max P.27 mmHg AO Mean Gr.: 2.95 mmHg LVOT Mean P.08 mmHg LVOT Max V: 0.75 m/s AO V2 VTI: 16.19 cm LVOT Mean V: 0.47 m/s DOMINIQUE (VTI): 3.25 cm2 LVOT V1 VTI: 12.05 [place] [address] 2 D/M-MODE ECHOCARDIOGRAM Name: ALICE ALEX Room: [address] IN [facility]#: [id number] Admission: 03/29/21 Attend Phys: Rylan Staton Discharge: Date of : 59 Date of Service: 03/30/21 1247 Report #: [id number] Mitral Valve E/A Ratio: 2.34 MV Decel. Time: 113.20 ms MV E Max Jalen.: 1.07 m/s MV PHT: 32.83 ms MVA (PHT): 6.70 cm2 Pulmonary Valve PV Peak Jalen.: 0.94 m/s PV Peak Gr.: 3.54 mmHg Tricuspid Valve RAP Estimate: 5.00 mmHg TR Peak Gr.: 34.67 mmHg RVSP: 39.00 mmHg PA Pressure: 39.00 mmHg Left Ventricle Left ventricle is moderately dilated. There is global hypokinesis of the left ventricle. There is normal left ventricular wall thickness. Left ventricular systolic function is severely decreased. LVEF is 20-25%. Grade IV - fixed restrictive diastolic dysfunction. Right Ventricle The right ventricle is normal size. The right ventricular systolic function is normal. Atria Left atrium is severely dilated. The right atrium size is normal. Aortic Valve The aortic valve is normal in structure. No aortic regurgitation is present. There is no aortic valvular stenosis. Mitral Valve The mitral valve is normal in structure. moderately severe mitral regurgitation. No evidence of mitral valve stenosis. Tricuspid Valve The tricuspid valve is normal in structure. Mild tricuspid regurgitation estimated pulmonary artery pressure 40 mm hg Pulmonic Valve The pulmonary valve is normal in structure. There is no pulmonic [place] [address] 2 D/M-MODE ECHOCARDIOGRAM Name: ALICE ALEX Room: [address]#: [id number] Admission: 03/29/21 Attend Phys: Rylan Staton Discharge: Date of : 59 Date of Service: 03/30/21 1247 Report #: [id number] Great Vessels The aortic root is normal in size. IVC is normal in size and collapses >50% with inspiration. Pericardium There is no pericardial effusion. <Conclusion> Left ventricle is moderately dilated. LVEF is 20-25%. Left atrium is severely dilated. moderately severe mitral regurgitation. Mild tricuspid regurgitation estimated pulmonary artery pressure 40 mm hg <ELECTRONICALLY SIGNED> By: Marquise Garcia MD, [facility] 03/30/21 1247 46 124 Marquise Garcia MD, FAC /INF
[2021-03-30] MEDS ORDERED: LASIX 40 MG TAB40 MG PO (15:10)
[2021-03-30] MEDS ORDERED: OMEPRAZOLE40 MG PO (15:10)
[2021-03-30] MEDS ORDERED: FLOMAX0.4 MG PO (15:10)
[2021-03-30] MEDS ORDERED: PREDNISONE 10 M10 MG PO (15:12)
[2021-03-30] MEDS ORDERED: SPIRIVA18 MCG INH (15:12)
--- NOTE | 2021-03-30 16:43 | NUR ---
RECIEVED REPORT FROM [facility] IN ER OF EXPECTED ADMISSION AT 1234- DX: RF; COPD EXACERBATION- PT ARRIVED TO UNIT, ROOM 225 VIA BED AT 1327- FAST FOOD MANAGER PLACED WITH NOTED SR/ST- PT A&O X4- CONT OF B/B- SBA WITH TRANSFERS FOR SAFETY- COURSE LUNG SOUNDS WITH AUDIBLE WHEEZES- DYSPNEA NOTED WITH MINIMAL EXERTION-VSS, O2 SAT 99% ON 5L, TITRATED TO 5L- ECHO NOTED WITH 20-25% EF- PT NOTED TO HAVE HORSE VOICE AND REPORTS HAVING HARD TIME WITH SOLID FOODS AND NEEDS GROUNDED R/T PLANNED/NEEDED DIALATION OF ESOPHAGUS IN - BS NOTED AND MONITORED PER ORDERS-PT DENIES ANY OPEN WOUNDS/SOARS- DENIES ANY C/O PAIN- CALL LIGHT AND PERSONAL BELONGINGS WITH IN REACH- HOURLY ROUNDS IN PLACE R/T SAFETY/NEEDS- ALL NEEDS MET AT THIS TIME
[2021-03-31 01:13] VITALS: BP 122/86
[2021-03-31 04:35] VITALS: BP 98/64
[2021-03-31 05:03] LABS: HEMATOCRIT 29.4 % (42.0-52.0); HEMOGLOBIN 9.1 gm/dL (14.0-18.0); MCHC 30.8 g/dL (28.0-37.0); MCV 68.2 fL (80.0-100.0); MPV 7.9 fl. (7.2-11.1); RBC 4.31 mil/uL (4.50-6.00); RDW-CV 21.3 % (10.5-14.5); WBC 7.4 thou/uL (4.0-11.0)
[2021-03-31 05:18] LABS: CALCIUM 8.9 mg/dL (8.5-10.1); POTASSIUM 3.9 mmol/L (3.5-5.1)
[2021-03-31 07:45] VITALS: BP 104/71
--- NOTE | 2021-03-31 09:44 | NUR ---
ASSUMED CARE OF PT THIS AM AROUND 0715- SWATCH CHECKER IN PLACE ORDERED, TRACING SR- UPON ASSESSMENT PT NOTED TO BE RESTING IN BED- PT A&O X4, ANXIOUS- CONT OF B/B- UP SBA WITH TRANSFERS- RLL CRACKLES NOTED, SOA NOTED WITH EXERTION- VSS, O2 SAT 975 ON 2L VIA NC- ABD SOFT/ROUND/NON-TENDER, BS X4 QUADS- LAST BM REPORTED 03/30/21- IV NOTED TO RIGHT FA INTACT AND SL; IV ABT GIVEN THIS AM PRESCRIBED- BS MONITORED ORDERED WITH SSI PRESCRIBED- GOOD URINE OUT PUT NOTED R/T DIURESIS- PT DENIES ANY C/O PAIN- CALL LIGHT AND PERSONAL BELONGINGS WITH IN REACH- HOURLY ROUNDS IN PLACE R/T SAFETY/NEEDS- ALL NEEDS MET AT THIS TIME
--- NOTE | 2021-03-31 10:25 | NUR ---
CM ASSESSMENT: PT A&O, AND INDEPENDENT WITH ADL'S. PT RESIDES AT HOME ALONE. PT USES 0 DME AT HOME. PT HAS 0 HX OF HH OR SNF. PT HAS MEDICAID ONLY INSURANCE, SO HE IS ONLY ABLE HAVE HH WITH NURSING ONLY. PT IS NOT ABLE TO GO TO SNF WITH MEDICAID INSURANCE. PT CURRENTLY ON 1L-2L OXYGEN, AND DOES NOT HAVE HOME O2. PT MAY NEED HH AT D/C, AND WILL NEED R.T. REST AND EX OX TO DETERMINE PT'S HOME O2 NEEDS. CM WILL REMAIN AVAILABLE TO ASSIST AND FOLLOW NEEDED.
[2021-03-31] MEDS ORDERED: DOXYCYCLINE 10100 MG PO (10:35)
[2021-03-31 11:58] VITALS: BP 104/71
[2021-03-31 12:00] VITALS: BP 107/67
--- NOTE | 2021-03-31 14:15 | NUR ---
PLAN OF CARE: PHYSICIAN INFORMS OF PLAN FOR THE PT TO D/C HOME TODAY WITH SELF-CARE PENDING REST AND EX OX. R.T. TESTIGN COMPLETED AND INDICATES THAT THE PT DOES NOT QUALIFY FOR HOME OXYGEN. NO OTHER CM NEEDS. CM WILL REMAIN AVAILABLE TO ASSIST AND FOLLOW NEEDED.
[2021-03-31 16:15] VITALS: BP 104/71
== END 2021-03-31 15:35 | disposition home or self-care (01) | DRG 189 ==
LOC: M.ERS 09:53 → M.TBA-ER 10:43 → M.2W 03-30 13:27
PROVIDERS: Family Medicine; ADMIT Internal Medicine; ATTEND Internal Medicine
DX: J96.01 Acute respiratory failure with hypoxia (principal); J44.1 Chronic obstructive pulmonary disease with (acute) exacerbation; I50.30 Unspecified diastolic (congestive) heart failure; Z20.822 Contact with and (suspected) exposure to COVID-19; F31.9 Bipolar disorder, unspecified; I11.0 Hypertensive heart disease with heart failure; F17.210 Nicotine dependence, cigarettes, uncomplicated; F41.9 Anxiety disorder, unspecified; Z99.81 Dependence on supplemental oxygen; Z86.73 Personal history of transient ischemic attack (TIA), and cerebral infarction without residual deficits; Z79.899 Other long term (current) drug therapy; Z79.51 Long term (current) use of inhaled steroids; Z71.6 Tobacco abuse counseling

== ENCOUNTER 2021-04-03 08:12 | Emergency (ER) | payer MEDICAID ==
[~2021-04-03] VITALS: Ht 172.7 cm; Wt 88.5 kg
[~2021-04-03 08:12] MED LIST changes: +DOXYCYCLINE 10100 MG PO; +FLOMAX0.4 MG PO; +OMEPRAZOLE40 MG PO; +PREDNISONE 10 M10 MG PO; +SPIRIVA18 MCG INH
[2021-04-03] MEDS ORDERED: DOXYCYCLINE 10100 M2 PO (10:45)
[2021-04-03 11:07] VITALS: BP 117/81
== END 2021-04-03 11:08 | disposition home or self-care (01) ==
LOC: M.ERS 08:12
DX: S61.212A Laceration without foreign body of right middle finger without damage to nail, initial encounter (principal); I11.0 Hypertensive heart disease with heart failure; I50.9 Heart failure, unspecified; J44.9 Chronic obstructive pulmonary disease, unspecified; F17.210 Nicotine dependence, cigarettes, uncomplicated; Z86.73 Personal history of transient ischemic attack (TIA), and cerebral infarction without residual deficits; Z79.899 Other long term (current) drug therapy; W45.8XXA Other foreign body or object entering through skin, initial encounter; Y93.89 Activity, other specified; Y92.89 Other specified places as the place of occurrence of the external cause; Y99.9 Unspecified external cause status

== ENCOUNTER 2021-06-12 06:28 | Emergency (ER) | payer MEDICAID ==
[~2021-06-12] VITALS: Ht 172.7 cm; Wt 90.7 kg
[~2021-06-12 06:28] MED LIST changes: +DOXYCYCLINE 10100 M2 PO
[2021-06-12 06:52] LABS: HEMATOCRIT 30.8 % (42.0-52.0); HEMOGLOBIN 9.2 gm/dL (14.0-18.0); MCHC 29.7 g/dL (28.0-37.0); MCV 67.4 fL (80.0-100.0); MPV 8.5 fl. (7.2-11.1); NUCLEATED RBCS 0 /100WBC; PLATELET COUNT* 227 thou/uL (150-400); RBC 4.57 mil/uL (4.50-6.00); RDW-CV 19.6 % (10.5-14.5)
[2021-06-12 07:01] LABS: BE -1.1 mmol/L (-2 to +3); PCO2 33.4 mmHg (35.0-45.0); PO2 98.2 mmHg (75.0-100.0); pH 7.446 (7.340-7.450)
[2021-06-12 07:03] LABS: CALCIUM 8.9 mg/dL (8.5-10.1); POTASSIUM 3.4 mmol/L (3.5-5.1)
[2021-06-12 07:07] LABS: ALBUMIN 3.3 g/dL (3.4-5.0); MAGNESIUM 1.9 mg/dL (1.8-2.4); TOTAL BILIRUBIN 0.2 mg/dL (<0.1-1.0); TOTAL PROTEIN 6.5 g/dL (6.4-8.2)
[2021-06-12 07:41] LABS: ABSOLUTE LYMPHOCYTES 0.8 thou/uL (0.8-5.3); ABSOLUTE MONOCYTES 0.1 thou/uL (0.0-1.2); ABSOLUTE NEUTROPHILS 6.2 thou/uL (1.6-8.1); ANISOCYTOSIS 2+
[2021-06-12 07:42] LABS: HYPOCHROMASIA 2+; MICROCYTES 2+
[2021-06-12] MEDS ORDERED: PREDNISONE 20 M20 M1 PO (08:28)
[2021-06-12] MEDS ORDERED: DOXYCYCLINE 10100 MG PO (08:28)
[2021-06-12 08:30] VITALS: BP 112/82
--- NOTE | 2021-06-13 11:30 | EKG ---
[place] [address] ELECTROCARDIOGRAM REPORT Name: ABIALICE L Room: [facility]#: [id number] Admission: 06/12/21 Attend Phys: Discharge: 06/12/21 Date of : 59 Date of Service: 06/12/2131 Report #: [id number] THIS REPORT FOR: //name// [facility] ED Test Date: 2021-06-12 Test Time: 06:31:30 Pat Name: ALICE ALEX Department: Room: Gender: Support Services Coordinator: [place] : 1955 Requested By: Bre Baldwin Order Number: [id number] MD: Gulshan Thomas Measurements Intervals [place] Rate: 101 P: 44 OR: 155 QRS: 8 QRSD: 87 T: 228 QT: 451 QTc: 585 Interpretive Statements Sinus tachycardia Multiple premature complexes, vent & supraven Probable left atrial enlargement Anteroseptal infarct, age indeterminate Prolonged QT interval Compared to ECG 03/29/2021 10:25:45 Myocardial infarct finding now present Prolonged QT interval now present Left ventricular hypertrophy no longer present Q waves no longer present Electronically Signed On 06-13-2021 11:29:48 CDT by Gulshan Thomas [email or web address] <ELECTRONICALLY SIGNED> By: Nikkie Thomas MD, [facility] 06/13/21 1129 0 0 Nikkie Thomas MD, [facility] /EPI
== END 2021-06-12 08:30 | disposition home or self-care (01) ==
LOC: M.ERS 06:28
PROVIDERS: Personal Emergency Response Attendant
DX: J96.00 Acute respiratory failure, unspecified whether with hypoxia or hypercapnia (principal); Z20.822 Contact with and (suspected) exposure to COVID-19; J44.9 Chronic obstructive pulmonary disease, unspecified; R17 Unspecified jaundice; I11.0 Hypertensive heart disease with heart failure; I50.9 Heart failure, unspecified; F17.210 Nicotine dependence, cigarettes, uncomplicated; Z79.899 Other long term (current) drug therapy